=== PATIENT | female | born 1950 | race Caucasian/White ===

== ENCOUNTER 2020-12-31 14:31 | Observation (INO) ==
[2020-12-31] MEDS ORDERED: Naloxone 0.4 MG/ML INJ IVP PRN (20:30)
[2020-12-31] MEDS ORDERED: Ondansetron 4 MG/2 ML VIAL IVP PRN (20:30)
[2020-12-31] MEDS ORDERED: Perflutren Lipid Microsphere 1.3 ML in 0.9 % Sodium Chloride 8.7 ML IVP PRN (20:33)
[2021-01-01 03:02] LABS: Basophils # 0.1 K/mcL (0.0-0.2); Basophils % 1.4 %; Eosinophils # 0.2 K/mcL (0.0-0.6); Eosinophils % 2.5 %; Hematocrit 27.6 % (35.3-44.9); Hemoglobin 8.2 g/dL (11.5-15.4); Immature Granulocytes % 0.3 % (0-4); Lymphocytes # 1.5 K/mcL (0.6-4.6); Lymphocytes % 23.5 %; Mean Corpuscular HGB Conc 29.7 g/dL (31.6-35.5); Mean Corpuscular Hemoglobin 26.8 pg (28.0-33.3); Mean Corpuscular Volume 90.2 fL (83.0-100.0); Mean Platelet Volume 9.6 fL (9.4-12.4); Monocytes # 0.9 K/mcL (0.0-1.3); Monocytes % 14.1 %; Neutrophils # 3.7 K/mcL (1.6-8.9); Platelet Count 413 K/mcL (140-400); Red Blood Count 3.06 M/mcL (3.82-4.97); Red Cell Distribution Width 14.7 % (11.5-14.5); Segmented Neutrophils % 58.2 %; White Blood Count 6.4 K/mcL (4.3-11.1)
[2021-01-01 03:11] LABS: INR 1.1; Prothrombin Time 12.1 Seconds (9.4-12.1)
[2021-01-01 03:13] LABS: Activated Partial Thrombo Time 32.5 Seconds (26.0-36.0)
[2021-01-01 03:29] LABS: Alanine Aminotransferase 20 Units/L (7-52); Albumin/Globulin Ratio 1.1 (1.1-2.2); Alkaline Phosphatase 63 Units/L (34-104); Aspartate Amino Transferase 19 Units/L (13-39); BUN/Creatinine Ratio 23 (6-26); Bilirubin,Total 0.3 mg/dL (0.3-1.0); Blood Urea Nitrogen 15 mg/dL (8-23); C-Reactive Protein < 5 mg/L (Less than 10); Calcium 8.8 mg/dL (8.6-10.3); Carbon Dioxide 28 mEq/L (23-29); Chloride 108 mEq/L (98-107); Creatine Kinase 32 Units/L (30-223); Globulin 2.7 g/dL (2.4-3.5); Glucose 90 mg/dL (70-105); Lactate Dehydrogenase 141 Units/L (140-271); Osmolality,Calculated 292 (280-300); Potassium 3.8 mEq/L (3.5-5.1); Sodium 141 mEq/L (136-145); Total Protein 5.7 g/dL (6.4-8.9); Troponin I 0.49 ng/mL (< 0.04); eGFR For African Americans > 60 (> 60); eGFR For Non-African Americans > 60 (> 60)
[2021-01-01 03:47] LABS: Ferritin 9 ng/mL (10-120)
[2021-01-01] MEDS: *HR* Enoxaparin 100 MG/ML SYRINGE SQ SCH ×2 (06:53→17:25)
[2021-01-01] MEDS: Aspirin 81 MG TAB.CHEW PO SCH (09:57)
[2021-01-01] MEDS ORDERED: EPINEPHrine 1 MG/ML VIAL IM PRN (11:48)
[2021-01-01] MEDS ORDERED: methylPREDNISolone 125 MG/2 ML VIAL IVP PRN (11:48)
[2021-01-01] MEDS ORDERED: Bamlanivimab 700 MG, Etesevimab 1,400 MG in 0.9 % Sodium Chloride 100 ML IVPB ONE (11:48)
[2021-01-01] MEDS ORDERED: Acetaminophen 325 MG TABLET PO PRN (11:48)
[2021-01-02 05:41] LABS: BUN/Creatinine Ratio 19 (6-26); Blood Urea Nitrogen 13 mg/dL (8-23); Calcium 9.4 mg/dL (8.6-10.3); Carbon Dioxide 27 mEq/L (23-29); Chloride 109 mEq/L (98-107); Glucose 104 mg/dL (70-105); Osmolality,Calculated 292 (280-300); Potassium 3.8 mEq/L (3.5-5.1); Sodium 141 mEq/L (136-145); eGFR For African Americans > 60 (> 60); eGFR For Non-African Americans > 60 (> 60)
[2021-01-02] MEDS: *HR* Enoxaparin 100 MG/ML SYRINGE SQ SCH (06:13)
[2021-01-02 08:52] VITALS: TEMP 98.3
[2021-01-02] MEDS: Aspirin 81 MG TAB.CHEW PO SCH (08:59)
[2021-01-02] MEDS ORDERED: Cholecalciferol (D-3) 1,000 UNIT (25MCG) TABLET PO SCH (09:00)
[2021-01-02] MEDS ORDERED: Naphazoline/Pheniramine Opth 15 ML BOTTLE BOTH EYES PRN (09:17)
[2021-01-02 11:50] VITALS: BP 110/74; PULSE 87; O2SAT 97
[2021-01-02] MEDS ORDERED: Fluticasone Propionate Nasal 50 MCG/SPRAY BOTTLE NS SCH (21:00)
== END 2021-01-02 15:44 | disposition home or self-care (01) ==
LOC: 2ANU → SUATTDRO 18:38
PROVIDERS: ADMIT Family Medicine; ATTEND Student in an Organized Health Care Education/Training Program